=== PATIENT | male | born 1950 | race Caucasian/White ===

== ENCOUNTER 2020-05-25 20:53 | Emergency (ER) | payer MEDICARE, OTHER ==
[~2020-05-25] VITALS: Ht 170.2 cm; Wt 83.9 kg
[2020-05-25] MEDS ORDERED: HUMALOG100 UNIT/1 SUBQ (21:21)
[2020-05-25] MEDS ORDERED: LONG ACTING INSULIN SUBQ (21:22)
[2020-05-25] MEDS ORDERED: ATENOLOL 25 MG25 M1 PO (21:23)
[2020-05-25] MEDS ORDERED: PRINIVIL10 MG PO (21:23)
[2020-05-25] MEDS ORDERED: ANTIBIOTIC (21:23)
[2020-05-25] MEDS ORDERED: METFORMIN HCL500 M3 PO (21:23)
[2020-05-25] MEDS ORDERED: MELOXICAM15 MG PO (21:24)
[2020-05-25] MEDS ORDERED: KLOR-CON 1010 MEQ PO (21:24)
[2020-05-25] MEDS ORDERED: LIPITOR10 MG PO (21:24)
[2020-05-25] MEDS ORDERED: FERROUS FUMARA324 MG PO (21:25)
[2020-05-25 22:06] VITALS: BP 151/38
== END 2020-05-25 22:06 | disposition home or self-care (01) ==
LOC: M.ERS 20:53
DX: T81.32XA Disruption of internal operation (surgical) wound, not elsewhere classified, initial encounter (principal); I10 Essential (primary) hypertension; E11.9 Type 2 diabetes mellitus without complications; E78.00 Pure hypercholesterolemia, unspecified; Z79.899 Other long term (current) drug therapy; Z79.4 Long term (current) use of insulin; Y83.9 Surgical procedure, unspecified as the cause of abnormal reaction of the patient, or of later complication, without mention of misadventure at the time of the procedure; Y92.89 Other specified places as the place of occurrence of the external cause